=== PATIENT | male | born 1970 | race Caucasian/White ===

== ENCOUNTER 2016-12-26 12:44 | Inpatient (IN) | payer OTHER ==
[~2016-12-26] VITALS: Ht 198.1 cm; Wt 171.5 kg
[2016-12-26 13:57] LABS: HEMOGLOBIN 15.9 gm/dl (14.0-17.5); RED BLOOD COUNT 5.26 M/UL (4.20-5.50); WHITE BLOOD COUNT 6.1 K/UL (4.5-11.0)
[2016-12-26 14:20] LABS: BUN/CREATININE RATIO 11 (0-10)
[2016-12-27 04:30] LABS: HEMOGLOBIN 15.2 gm/dl (14.0-17.5); RED BLOOD COUNT 5.07 M/UL (4.20-5.50)
[2016-12-27 04:34] LABS: WHITE BLOOD COUNT 4.1 K/UL (4.5-11.0)
[2016-12-27 04:48] LABS: BUN/CREATININE RATIO 12 (0-10)
[2016-12-27] MEDS ORDERED: NORVASC 5 MG TAB5 MG PO (05:05)
[2016-12-27] MEDS ORDERED: PRILOSEC OTC20 MG PO (05:06)
[2016-12-28] MEDS ORDERED: ELIQUIS 5 MG TAB5 MG PO (11:34)
[2016-12-28] MEDS ORDERED: ASPIRIN EC81 MG PO (11:35)
[2016-12-28] MEDS ORDERED: SOTALOL80 MG PO (11:35)
[2016-12-28] MEDS ORDERED: XARELTO20 MG PO (11:37)
== END 2016-12-28 13:30 | disposition home or self-care (01) | DRG 309 ==
LOC: ER1 12:44 → ZEROF 15:19 → PROG CARE 15:19
PROVIDERS: Emergency Medicine; ADMIT Internal Medicine
PROC: 5A2204Z Restoration of Cardiac Rhythm, Single (ICD-10-PCS; principal; 2016-12-27)
PROC: B24BZZ4 Ultrasonography of Heart with Aorta, Transesophageal (ICD-10-PCS; 2016-12-27)
DX: I48.91 Unspecified atrial fibrillation (principal); Z68.41 Body mass index [BMI] 40.0-44.9, adult; Z91.19 Patient's noncompliance with other medical treatment and regimen; I10 Essential (primary) hypertension; K21.9 Gastro-esophageal reflux disease without esophagitis; Z88.8 Allergy status to other drugs, medicaments and biological substances; Z79.899 Other long term (current) drug therapy; F17.210 Nicotine dependence, cigarettes, uncomplicated; Z82.49 Family history of ischemic heart disease and other diseases of the circulatory system; Z83.3 Family history of diabetes mellitus; E66.01 Morbid (severe) obesity due to excess calories; F15.10 Other stimulant abuse, uncomplicated; I51.7 Cardiomegaly
CPT/HCPCS: 36415; 71010; 80048; 80053; 80061; 82550; 82553; 83735; 83874; 84100; 84439; 84443; 84484; 85025; 85027; 85610; 85730; 92960; 93005; 93312; 93320; J1200; J1742; J2250; J2270; J7030; J7050